=== PATIENT | female | born 1950 | race African-American/Black ===

== ENCOUNTER 2017-10-19 07:29 | Inpatient (IN) | payer OTHER ==
[2017-10-18 10:51] VITALS: BMI 28.5
[2017-10-19 08:05] LABS: URINE APPEARANCE CLEAR; URINE BILIRUBIN NEGATIVE (<2.0 mg/dL); URINE COLOR LTYELLOW; URINE GLUCOSE (UA) NEGATIVE (NEGATIVE); URINE KETONE NEGATIVE (NEGATIVE); URINE LEUK ESTERASE TRACE (NEGATIVE); URINE NITRITE NEGATIVE (NEGATIVE); URINE PROTEIN NEGATIVE (NEGATIVE); URINE UROBILINOGEN NEGATIVE mg/dL (0.2-1.0)
[2017-10-19 08:17] LABS: EPI CELLS RARE /HPF (FEW); URINE MUCUS RARE
[2017-10-19] MEDS ORDERED: MIDAZOLAM HCL 2 MG/2 ML SINGLE DOSE VIAL ONE ×2 (09:09)
[2017-10-19] MEDS ORDERED: PROPOFOL 20 ML ONE (09:09)
[2017-10-19] MEDS ORDERED: ceFAZolin SODIUM 1 GM VIAL IVPB ONE (09:19)
[2017-10-19] MEDS ORDERED: ceFAZolin SODIUM 1 GM VIAL ONE (09:28)
[2017-10-19] MEDS ORDERED: oxyCODONE HCL 5 MG TABLET PO PRN (10:14)
[2017-10-19] MEDS ORDERED: ONDANSETRON 4 MG/2 ML VIAL IVPUSH PRN (10:14)
[2017-10-19] MEDS ORDERED: LACTATED RINGERS SOLUTION 1,000 ML IV SCH (10:15)
[2017-10-19] MEDS ORDERED: DEXAMETHASONE SOD PHOSPHATE 4 MG/1 ML VIAL ONE (10:23)
[2017-10-19] MEDS ORDERED: KETOROLAC TROMETHAMINE 30 MG/1 ML VIAL ONE (10:31)
--- NOTE | 2017-10-19 10:56 | OP ---
Operative Note - Note: Operative Date: 10/19/17 Pre-Operative Diagnosis: DCIS Post-Operative Diagnosis: Same as Pre-op Surgeon: Karlene Tidwell Mammography Tech: Gus Velázquez Anesthesia: General Estimated Blood Loss (mls): 150 Drains & Tubes with Location: B/L chest drains x 2. Fluid Volume Replaced (mls): 750 Operative Report Dictated: Yes
[2017-10-19] MEDS ORDERED: ALPRAZolam 2 MG TABLET PO PRN (10:57)
--- NOTE | 2017-10-19 10:58 | SURG ---
Surgery Problem Manager Note Problem Manager: Gus Velázquez PA-C Date of Service: 10/19/17 Diagnosis: DCIS Procedure: Bilateral radical modified mastectomy I was present for the entirety of the operative procedure. For further detail, please refer to operative report.
[2017-10-19] MEDS ORDERED: ACETAMINOPHEN 500 MG TABLET (FP) PO PRN (10:59)
--- NOTE | 2017-10-19 11:01 | HP ---
History & Physical Update - History History: No Change - Physical Physical: No Change - Assessment Assessment: No Change - Plan Plan: No Change
[2017-10-19] MEDS ORDERED: ACETAMINOPHEN INJECTION 100 ML IVPB ONE (11:16)
--- NOTE | 2017-10-19 11:44 | OP ---
DATE OF OPERATION: 10/19/2017 PREOPERATIVE DIAGNOSIS: Left breast ductal carcinoma in situ, BRCA2 positive. POSTOPERATIVE DIAGNOSIS: Left breast ductal carcinoma in situ, BRCA2 positive. PROCEDURE: Bilateral total mastectomy. SURGEON: Karlene Tidwell MD WOOL GROWER: Gus Velázquez PA-C ANESTHESIA: General. ESTIMATED BLOOD LOSS: 200 mL. DRAINS: DAO x4. COMPLICATIONS: None. This was a sterile procedure. INDICATIONS: Patient has a history of bilateral breast cancer treated with a left lumpectomy and axial node dissection in 1995, and in 1998, had a right breast lumpectomy and sentinel node biopsy and received adjuvant chemotherapy and radiation as well as tamoxifen. She now presents on routine screening mammography with calcifications in the upper outer left breast. Biopsy shows ductal carcinoma in situ. That is BRCA2 positive. We discussed doing a prophylactic right mastectomy and a complete left mastectomy given she has had radiation in the past. I did not feel she needed another additional lymph node sampling as she has had a completion node dissection on the left side. The procedure was discussed with her, and all the questions answered. We discussed the option of reconstruction, but she did not want to go ahead with that. PROCEDURE IN DETAIL: Patient was brought to [facility] in [place]. She was taken into the operating room, and after the induction of general anesthesia and IV antibiotics, both breasts were prepped in the usual sterile fashion. First, the right mastectomy was performed. An ellipse of skin was taken to include the nipple areola as well as the prior lumpectomy scar in the upper right breast. Superior, inferior, medial, lateral flaps were raised, and the breast was reflected off the pectoralis muscle, tagged with a stitch at the lateral edge and sent as a right breast mastectomy for permanent section. Hemostasis was assured with electrocautery. The 2 flat DAO drains were inserted into the mastectomy site through separate stab wounds and secured to the skin with a 3-0 nylon stitch. The skin was then approximated using skin lesly. Next, the left mastectomy was performed. An ellipse of skin was taken to include the nipple areola as well as the scar in the upper outer left breast. Superior, inferior, medial, lateral flaps were raised, and the breast was reflected off the pectoralis muscle, and tagged with a stitch at the lateral edge, and sent to Pathology for permanent section. Hemostasis was assured with electrocautery. Through 2 separate stab wounds, 10-mm DAO drains were inserted into the mastectomy site and secured to the skin with a 3-0 nylon stitch. The skin was then approximated with skin lesly. A sterile dressing of Vaseline gauze, Tegaderm, fluffs, and ABD was applied as well as a surgical bra. She tolerated the procedure well, was extubated on the operating room table and taken to recovery in good condition. Redd [id number]
[2017-10-19] MEDS: LACTATED RINGERS SOLUTION 1,000 ML/1,000 ML INFUS.BAG IV SCH (16:30)
[2017-10-19] MEDS: INSULIN SLIDING SCALE (NOVOLOG) 1 VIAL SQ SCH ×2 (17:08→22:35)
[2017-10-20] MEDS: LACTATED RINGERS SOLUTION 1,000 ML/1,000 ML INFUS.BAG IV SCH ×2 (00:30→11:30)
[2017-10-20] MEDS: INSULIN SLIDING SCALE (NOVOLOG) 1 VIAL SQ SCH ×6 (07:24→21:11)
--- NOTE | 2017-10-20 10:28 | PN ---
Progress Note (short form) - Note Progress Note: pod 1 afebrile, vss, slight pain today Mastectomy flaps viable, JPs patent awaiting VNS Ambulate today pain control admit to inpatient services
[2017-10-20] MEDS ORDERED: ALBUTEROL SO4 18 GM HFA INHALER IH PRN ×2 (10:32→10:40)
[2017-10-20] MEDS: ATENOLOL 50 MG TABLET (FP) PO SCH (11:42)
[2017-10-20] MEDS: HYDROCHLOROTHIAZIDE 12.5 MG CAPSULE (FP) PO SCH (11:42)
--- NOTE | 2017-10-20 14:07 | PROC ---
Procedure Note Procedure: Anesthesia postop note POD#1, S/P bilateral mastectomy under GA. Pat seen and examined. No complaints. VSS. No apparent post anesthesia complications. Signed off.
[2017-10-20] MEDS ORDERED: PT OWN MED DRAWER 7, Y5N ONE (16:40)
[2017-10-20] MEDS: DOCUSATE SODIUM 100 MG CAPSULE (FP) PO SCH (21:11)
[2017-10-21] MEDS ORDERED: PT OWN MED DRAWER 7, Y5N ONE (02:54)
[2017-10-21] MEDS: glipiZIDE-XL 2.5 MG TAB.ER.24 PO SCH (06:07)
[2017-10-21] MEDS: INSULIN SLIDING SCALE (NOVOLOG) 1 VIAL SQ SCH ×4 (06:08→22:03)
[2017-10-21] MEDS: ATENOLOL 50 MG TABLET (FP) PO SCH ×2 (10:27→11:39)
[2017-10-21] MEDS: LACTATED RINGERS SOLUTION 1,000 ML/1,000 ML INFUS.BAG IV SCH (10:28)
[2017-10-21] MEDS: DOCUSATE SODIUM 100 MG CAPSULE (FP) PO SCH ×2 (10:28→22:03)
[2017-10-21] MEDS: HYDROCHLOROTHIAZIDE 12.5 MG CAPSULE (FP) PO SCH (10:28)
[2017-10-22] MEDS: INSULIN SLIDING SCALE (NOVOLOG) 1 VIAL SQ SCH ×3 (06:21→17:38)
[2017-10-22] MEDS: glipiZIDE-XL 2.5 MG TAB.ER.24 PO SCH (07:52)
[2017-10-22 08:58] VITALS: BP 138/83
[2017-10-22] MEDS: DOCUSATE SODIUM 100 MG CAPSULE (FP) PO SCH (09:13)
[2017-10-22] MEDS: ATENOLOL 50 MG TABLET (FP) PO SCH (09:14)
[2017-10-22] MEDS: HYDROCHLOROTHIAZIDE 12.5 MG CAPSULE (FP) PO SCH (09:14)
[2017-10-22 14:43] VITALS: PULSE 83; TEMP 98.6
[2017-10-22] MEDS ORDERED: PT OWN MED DRAWER 7, Y5N ONE (17:36)
--- NOTE | 2017-10-25 13:02 | PATH ---
Surgical Pathology Report Patient Name: DEBORA WONG [facility]. Rec. #: [id number] /Age/Gender: 1950 (Age: 67) / F Account: [id number] Location: [address] [place] [address] Taken: 10/19/2017 Received: 10/19/2017 Reported: 10/25/2017 Physicians: Karlene Tidwell M.D. Specimen(s) Received A: RIGHT BREAST, MASTECTOMY B: LEFT BREAST, MASTECTOMY Clinical History History of bilateral breast cancer treated with lumpectomy and radiation in 1995 and 1998 BRCA2+ with left breast DCIS (UOQ) Final Diagnosis A. BREAST, RIGHT, MASTECTOMY: DUCTAL CARCINOMA IN SITU (DCIS), SOLID TYPE, LOW NUCLEAR GRADE, UPPER OUTER QUADRANT (UOQ), ARISING IN DENSE FIBROSIS, PRESENT IN ONE OF FIFTEEN SLIDES (1). DCIS MEASURES 2 MM IN GREATEST DIMENSION, MICROSCOPICALLY. SURGICAL MARGINS ARE UNINVOLVED BY CARCINOMA, WIDELY FREE OF TUMOR. CHANGES OF PRIOR BIOPSY PRESENT. SKIN AND NIPPLE ARE PRESENT AND UNINVOLVED BY CARCINOMA. PATHOLOGIC STAGE (pTNM): rpTis pNx. SEE CASE SUMMARY BELOW. B. BREAST, LEFT, MASTECTOMY: DUCTAL CARCINOMA IN SITU (DCIS), SOLID TYPE, LOW NUCLEAR GRADE, UPPER AND LOWER OUTER QUADRANTS (UOQ AND LOQ), ARISING IN DENSE FIBROSIS AND ADJACENT PRIOR BIOPSY SITE, PRESENT IN FIVE OF TWENTY ONE SLIDES (5/21). DCIS MEASURES 5 MM IN GREATEST DIMENSION, MICROSCOPICALLY. SURGICAL MARGINS ARE UNINVOLVED BY CARCINOMA; CARCINOMA IS 1.5 CM FROM THE CLOSEST DEEP MARGIN. SKIN AND NIPPLE ARE PRESENT AND UNINVOLVED BY CARCINOMA. CHANGES OF PRIOR BIOPSY PRESENT. PATHOLOGIC STAGE (pTNM): rpTis pN0. SEE CASE SUMMARY BELOW. Comments DCIS of the Breast: Surgical Pathology Cancer Case Summary (Based on AJCC TNM 8 th edition) Procedure _X_ Total mastectomy Specimen Laterality _X_ Right _X_ Left Size (Extent) of DCIS Right (UOQ) Estimated size (extent) of DCISat least (millimeters) _2_ mm Number of blocks with DCIS: _1__ Number of blocks examined: _15_ Left (UOQ AND LOQ) Estimated size (extent) of DCISat least (millimeters) _5_ mm Number of blocks with DCIS: _5__ Number of blocks examined: _21_ Histologic Type _X__ Ductal carcinoma in situ Architectural Patterns _X__ Solid Nuclear Grade _X_ Grade I (low) Necrosis _X_ Not identified Margins _X__ Uninvolved by DCIS Distance from closest margin (millimeters): Right breast: widely free Left Breast: _15_ mm Specify closest margin: Deep margin Regional Lymph Nodes Lymph Node Examination Right Breast _X_ No Lymph nodes submitted. Left breast Number of Lymph Nodes with Macrometastases (>2 mm): _0_ Number of Lymph Nodes with Micrometastases (>0.2 mm to 2 mm and/or >200 cells): _0_ Number of Lymph Nodes with Isolated Tumor Cells (=0.2 mm and =200 cells): _0_ Number of Lymph Nodes Examined: _1__ Pathologic Stage Classification (pTNM, AJCC 8th Edition) Primary Tumor Right and Left (pT) pTis (DCIS): Ductal carcinoma in situ (TNM) Descriptors _X_ r (recurrent) Regional Lymph Nodes (pN) Right: pNx: Regional lymph nodes cannot be assessed. Left: pN0: No regional lymph node metastasis identified. Microcalcifications _X_ Present in DCIS (Left breast) _X_ Present in nonneoplastic tissue (Right and Left breast) Results of Estrogen Receptor (ER) and Progesterone Receptor (DE) studies performed on block "B3" at [facility] are as follows: ER (clone [id number] mouse monoclonal antibody by [employer]): 95% nuclear staining with strong intensity (Positive). DE (clone16 mouse monoclonal antibody by [employer]): 70% nuclear staining with moderate to strong intensity (Positive). Formalin fixation time (approximately 79 hrs) exceeds current ASCO/CAP recommendations for ER, DE & Her2 testing (6-72 hrs). Negative results must be interpreted with caution as false negatives may occur. Cold ischemic time is within recommended guidelines. Electronically Signed Roseanna Ross M.D. Gross Description A. Received in formalin, labeled "right mastectomy," is a 915 gram, 20.0 x 15.0 x 8.5 cm. right mastectomy specimen with a suture marking the lateral edge of the breast, per the surgeon. There is a 19.5 x 8.5 cm brown, elliptical portion of skin with a 1.3 cm in diameter nipple. The deep margin is inked black and the anterior soft tissue margin is inked blue. The specimen is serially sectioned from lateral to medial. Sectioning reveals a 3.4 cm in greatest dimension focus of firm fibrous tissue in the upper outer quadrant (UOQ), possibly consistent with a previous biopsy cavity. The previous biopsy cavity abuts the skin and anterior soft tissue margin. The remaining breast parenchyma displays foci of white fibrous tissue. No definitive masses are identified. Precision Filer Hand sections are submitted in 15 cassettes as follows: 1-serially sectioned nipple; 2-subareolar shave; 3-UOQ possible previous biopsy cavity with skin; 4-5-UOQ possible previous biopsy cavity with anterior soft tissue margin; 6-additional uninvolved UOQ tissue; 7-8-lower outer quadrant; 9-10-upper inner quadrant; 11-12-lower inner quadrant; 13-anterior soft tissue margin; 14-skin; 15-deep margin. B. Received in formalin, labeled "left mastectomy," is an 897 gram, 21.0 x 15.5 x 8.5 cm. left mastectomy specimen with a suture marking the lateral edge of the skin, per the surgeon. There is a 21.0 x 9.0 cm jaeger-brown, elliptical portion of skin with a 1.3 cm in diameter nipple. The deep margin is inked black and the anterior soft tissue margin is inked blue. The specimen is serially sectioned from medial to lateral. Sectioning reveals a 2.2 x 1.5 x 1.5 cm hemorrhagic biopsy cavity containing a metal clip in the upper outer quadrant (UOQ). The cavity is surrounded by firm fibrous tissue that focally abuts the deep margin. There is an additional 1.5 x 1.2 x 0.8 cm focus of firm fibrous tissue also in the upper outer quadrant (UOQ), 1.5 cm from the deep margin. The remaining breast parenchyma displays multiple foci of white fibrous tissue. There is a 0.7 cm in greatest dimension lymph node identified at the lateral aspect of the specimen. Precision Filer Hand sections are submitted in 23 cassettes as follows: 1-serially sectioned nipple; 2-subareolar shave; 3-6-UOQ hemorrhagic biopsy site with deep margin; 0-5-pjromzahln fibrous tissue surrounding UOQ hemorrhagic biopsy site; 9-second UOQ focus of firm fibrous tissue with deep margin; 14-86-hbogtzaerd second UOQ focus of firm fibrous tissue; 13-uninvolved UOQ tissue; 14-15-lower outer quadrant; 16-17-upper inner quadrant; 18-19-lower inner quadrant; 20-anterior soft tissue margin; 21-skin; 22-deep margin; 23-one whole bisected lymph node. Total formalin fixation time: Approximately 79 hours 10/22/201710/22/2017
== END 2017-10-22 19:19 | disposition home or self-care (01) | DRG 583 ==
LOC: JSAMEDAYSX 07:29 → EDSTATUS 09:00 → J6S 15:55
PROVIDERS: ADMIT Surgery; ATTEND Surgery
PROC: 0HTV0ZZ Resection of Bilateral Breast, Open Approach (ICD-10-PCS; principal; 2017-10-19 09:00)
DX: C50.912 Malignant neoplasm of unspecified site of left female breast (principal); Z17.0 Estrogen receptor positive status [ER+]; Z40.01 Encounter for prophylactic removal of breast; I10 Essential (primary) hypertension; E78.5 Hyperlipidemia, unspecified; E11.9 Type 2 diabetes mellitus without complications
CPT/HCPCS: 81003; 81015; 82962; 86850; 86900; 86901; 88307-TC; 94760; J0131

== ENCOUNTER 2018-01-25 07:34 | Day surgery (SDC) | payer OTHER ==
[2018-01-24 17:27] VITALS: BMI 27.6
[2018-01-25 07:50] LABS: URINE APPEARANCE CLEAR; URINE BILIRUBIN NEGATIVE (<2.0 mg/dL); URINE COLOR LTYELLOW; URINE GLUCOSE (UA) NEGATIVE (NEGATIVE); URINE KETONE NEGATIVE (NEGATIVE); URINE LEUK ESTERASE NEGATIVE (NEGATIVE); URINE NITRITE NEGATIVE (NEGATIVE); URINE PROTEIN NEGATIVE (NEGATIVE); URINE UROBILINOGEN NEGATIVE mg/dL (0.2-1.0)
[2018-01-25] MEDS ORDERED: MIDAZOLAM HCL 2 MG/2 ML SINGLE DOSE VIAL ONE (08:34)
[2018-01-25] MEDS ORDERED: LIDOCAINE HCL/PF 2% SDV 5ML VIAL ONE (08:34)
[2018-01-25] MEDS ORDERED: DEXAMETHASONE SOD PHOSPHATE 4 MG/1 ML VIAL ONE (08:34)
[2018-01-25] MEDS ORDERED: PROPOFOL 20 ML ONE (08:34)
[2018-01-25] MEDS ORDERED: ceFAZolin SODIUM 1 GM VIAL IVPB ONE (09:30)
[2018-01-25] MEDS ORDERED: ONDANSETRON 4 MG/2 ML VIAL IVPUSH PRN (11:47)
[2018-01-25] MEDS ORDERED: oxyCODONE HCL 5 MG TABLET ONE (13:31)
[2018-01-25 18:37] VITALS: TEMP 98
[2018-01-25 18:42] VITALS: BP 128/80; PULSE 78
--- NOTE | 2018-01-26 08:54 | OP ---
DATE OF OPERATION: 01/25/2018 PREOPERATIVE DIAGNOSIS: Left breast cancer with open mastectomy wound. POSTOPERATIVE DIAGNOSIS: Left breast cancer with open mastectomy wound. PROCEDURE: Revision of left mastectomy flap. SURGEON: Karlene Pleitez MD ANESTHESIA: General. ESTIMATED BLOOD LOSS: Minimal. COMPLICATIONS: None. This is a sterile procedure. INDICATIONS: Patient had a left mastectomy for DCIS and has developed a chronic open wound in the medial aspect as well as a thickening along the inferior aspect of the mastectomy flap. Therefore, recommendation was a revision of this. PROCEDURE IN DETAIL: She was then brought into the operating room. After induction of general anesthesia and IV antibiotics, the left chest wall was prepped and draped in the usual sterile fashion. An ellipse of skin was taken to include the prior scar as well as the open wound, and some of the fatty tissue that was directly under the skin was excised together as a left revisional mastectomy tagged with a long stitch lateral and short stitch superior and sent for pathology for permanent section. Hemostasis was assured with electrocautery. Through a separate stab wound, a 10-mm J-P drain was placed into the mastectomy site, and the skin was then approximated using interrupted 3-0 Vicryl, running 4-0 Biosyn, and a sterile dressing of Telfa. A 4 x 4 and ABD was applied as well as a surgical bra. The drain was secured to the skin with a nylon stitch. She tolerated the procedure well and was extubated on the operating room table and taken to recovery in good condition. KARLENE PLEITEZ M.D. [id number]
--- NOTE | 2018-01-29 11:18 | PATH ---
Surgical Pathology Report Patient Name: DEBORA WONG [facility]. Rec. #: [id number] /Age/Gender: 1950 (Age: 67) / F Account: [id number] Location: [facility] SURGICAL Taken: 01/25/2018 Received: 01/25/2018 Reported: 01/29/2018 Physicians: Karlene Tidwell M.D. Specimen(s) Received LEFT BREAST, MASTECTOMY REVISION Clinical History Left breast cancer Final Diagnosis LEFT BREAST, REVISION OF MASTECTOMY, EXCISION: SEGMENT OF SKIN SHOWING ULCERATION, GRANULATION TISSUE FORMATION WITH ACUTE AND CHRONIC INFLAMMATION. ADJACENT FIBROADIPOSE TISSUE WITH REACTIVE CHANGES AND FIBROSIS AT PRIOR SURGERY SITE. NEGATIVE FOR CARCINOMA. Electronically Signed Mick Cohen M.D. Gross Description Received in formalin labeled "revision of left breast mastectomy," is a 15.0 x 4.0 x 2.5 cm elliptical portion of fibroadipose tissue with a short suture marking the superior aspect and a long suture marking the lateral aspect of the specimen, per the surgeon. The anterior surface displays a 15.0 x 2.0 cm brown, elliptical portion of skin with a central, linear scar. The specimen is inked as follows: Superior blue; inferior green; lateral red; medial yellow; deep black. The specimen is serially sectioned from medial to lateral. Sectioning reveals firm fibrosis and scar tissue at the lateral aspect of the specimen. No definitive mass is identified. Also received within the same container is a 7.5 x 4.5 x 1.4 cm aggregate of multiple unoriented fragments of fibroadipose tissue. Sectioning reveals foci of fibrous tissue. Breakfast Server sections are submitted in 10 cassettes as follows: 1-lateral margin; 2-4-area of firm fibrosis (each with a skin, inferior, superior and deep margins); 6-7-gmavbxtwop sections from area of firm fibrosis (each with skin, superior and deep margins); 8-medial margin; 9-additional welding equipment sales representative fibrous tissue with inferior and deep margins; 10-sections from separately received fragments of fibroadipose tissue. Total formalin fixation time: Approximately 60 hours 01/25/201801/25/2018
== END 2018-01-25 15:00 | disposition home or self-care (01) ==
LOC: JASU-SURG 07:34
PROVIDERS: ATTEND Surgery
PROC: 0DJD8ZZ Inspection of Lower Intestinal Tract, Via Natural or Artificial Opening Endoscopic (ICD-10-PCS; principal; 2018-01-25 09:00)
DX: K57.30 Diverticulosis of large intestine without perforation or abscess without bleeding (principal); K64.8 Other hemorrhoids
CPT/HCPCS: 81003; 81015; 82962; 88307-TC; 94760